=== PATIENT | female | born 1980 | race Hispanic/Latino ===

== ENCOUNTER 2017-07-26 15:45 | Observation (INO) | payer OTHER ==
--- NOTE | 2017-07-26 16:39 | ED PDOC ---
HPI: CCC, URI, Sore Throat Time Seen by Provider: 07/26/17 16:30 Chief Complaint (Nursing): ENT Problem Chief Complaint (Provider): Throat Pain History Per: Patient History/Exam Limitations: no limitations Onset/Duration Of Symptoms: Days (7 days) Current Symptoms Are (Timing): Still Present Location Of Pain: Throat Additional Complaint(s): 37 y/o female with a history of chronic strep infections presents to the ED complaining of throat pain, onset of 7 days ago. Pt reports a history of chronic tonsillitis. Pt contacted her ENT who called in Augmentin for her. Pt reports no relief Pt is scheduled for a tonsillectomy in Sep. Past Medical History Reviewed: Historical Data, Nursing Documentation, Vital Signs Vital Signs: Last Vital Signs Temp 97.9 F 07/26/17 15:54 Pulse 95 H 07/26/17 15:54 Resp 16 07/26/17 15:54 BP 145/92 H 07/26/17 15:54 Pulse Ox 100 07/26/17 17:02 - Medical History Other PMH: chronic streptococcus infections - Surgical History Surgical History: - Family History Family History: States: Unknown Family Hx - Living Arrangements Living Arrangements: With Family - Social History Current smoker - smoking cessation education provided: No Ex-Smoker (has not smoked in the last 12 months): No Alcohol: None - Home Medications Home Medications: Ambulatory Orders Medication Instructions Recorded Nifedipine [Adalat cc] 90 mg PO DAILY 04/28/15 - Allergies Allergies/Adverse Reactions: Allergies Allergy/AdvReac Type Severity Reaction Status Date / Time No Known Allergies Allergy Verified 07/26/17 15:53 Review of Systems ROS Statement: Except As Marked, All Systems Reviewed And Found Negative Constitutional: Negative for: Fever, Chills ENT: Positive for: Nose Congestion, Throat Pain (worse on left), Throat Swelling Respiratory: Positive for: Cough Physical Exam - Reviewed Nursing Documentation Reviewed: Yes Vital Signs Reviewed: Yes - Physical Exam Appears: Positive for: Non-toxic, No Acute Distress Head Exam: Positive for: ATRAUMATIC Skin: Positive for: Normal Color, Warm Eye Exam: Positive for: Normal appearance ENT: Positive for: Pharyngeal Erythema, Tonsillar Swelling (L palatal asymmetry) . Negative for: Tonsillar Exudate, Other (no uvula deviation) Cardiovascular/Chest: Positive for: Regular Rate, Rhythm. Negative for: Murmur Respiratory: Positive for: Normal Breath Sounds. Negative for: Respiratory Distress Neurologic/Psych: Positive for: Alert, Oriented. Negative for: Motor/Sensory Deficits - Laboratory Results Result Diagrams: 07/26/17 16:58 07/26/17 16:58 - ECG O2 Sat by Pulse Oximetry: 100 (RA) Pulse Ox Interpretation: Normal Medical Decision Making Medical Decision Making: Time: --16:30 Impression: --rule out peritonsillar abscess Plan: --CT neck soft tissue w/ contrast --Labs --[place] virus ab pnl --Cleocin 600ng IVPB --Dexamethasone --Throat Culture --Infectious Mononucleosis --Rapid Strep Group Reassess WBC 11.1 Kay (+) Pt made aware of all results -- IMPRESSION: 1. There are dependent fluid levels in the bilateral maxillary sinuses, cannot exclude acute sinusitis. 2. There is asymmetric prominence of the left palatine tonsil consistent with left tonsillitis. There are 2 foci of non-enhancement in the left palatine tonsil with surrounding tonsillar enhancement with the larger of these 2 regions measuring 1.9 x 1.1 x 1.6 cm and the smaller more inferiorly positioned lesion 1.2 x 0.5 x 0.9 cm, possible left tonsillar abscesses. 3. There is bilateral level II cervical lymphadenopathy, greater on the left than on the right ENT, Dr. Fuller, contacted and case discussed. Advised admission at this time, he will drain abscess in am. Orders left with RN Medicine on-call, Dr. Santiago, contacted and case discussed. Arrangements made for admission Pt doing well on re-eval, declined any further analgesics. Scribe Attestation: Documented by Salomon Melendrez acting as a scribe for MICHAEL Leonardo. Disposition - Clinical Impression Clinical Impression: Peritonsillar abscess - Patient ED Disposition Is Patient to be Admitted: Yes - Disposition Disposition Time: 20:02 Condition: STABLE Forms: [facility] ([place]ian) - Pt Status Changed To: Hospital Disposition Of: Observation
[2017-07-26] MEDS ORDERED: Dexamethasone 10 MG in Dextrose 5% In Water 50 ML IV ONE (16:46)
[2017-07-26] MEDS ORDERED: Iohexol 300 100 ML IJ ONE (16:48)
[2017-07-26] MEDS ORDERED: Sodium Chloride 0.9% 50 ML IV ONE (16:49)
[2017-07-26] MEDS ORDERED: Clindamycin 600mg/50ml NS 600 MG/50 ML BAG IVPB SCH (17:05)
[2017-07-26 17:21] LABS: BASO # 0.1 K/uL (0.0-0.2); BASO % 0.8 % (0.0-2.0); EOS # 0.1 K/uL (0.0-0.7); EOS % 0.9 % (0.0-4.0); HEMATOCRIT 38.3 % (34.0-47.0); LYMPH # 2.2 K/uL (1.0-4.3); LYMPH % 19.6 % (20.0-40.0); MEAN CELL VOLUME 93.7 fl (81.0-99.0); MEAN CORPUSCULAR HEMOGLOBIN 30.7 pg (27.0-31.0); MEAN CORPUSCULAR HGB CONC 32.8 g/dL (33.0-37.0); MONO # 0.8 K/uL (0.0-0.8); MONO % 7.4 % (0.0-10.0); NEUT # 7.9 K/uL (1.8-7.0); NEUT % 71.3 % (50.0-75.0); NRBC % 0.1 % (0.0-0.0); RED CELL DISTRIBUTION WIDTH 13.2 % (11.5-14.5); WHITE BLOOD COUNT 11.1 K/uL (4.8-10.8)
[2017-07-26 17:30] LABS: ALB/GLOB RATIO 1.2 (1.0-2.1); ALKALINE PHOSPHATASE 56 U/L (38-126); ALT/SGPT 28 U/L (9-52); AST/SGOT 32 U/L (14-36); BILIRUBIN,TOTAL 0.5 mg/dl (0.2-1.3); BLOOD UREA NITROGEN 15 mg/dl (7-17); CALCIUM 9.1 mg/dL (8.4-10.2); CARBON DIOXIDE 24 mmol/L (22-30); CHLORIDE 103 mmol/L (98-107); GFR AFRICAN-AMERICAN > 60; GLUCOSE,RANDOM 86 mg/dL (65-105); POTASSIUM 4.7 MMOL/L (3.6-5.0); SODIUM 140 mmol/l (132-148); TOTAL PROTEIN 8.1 G/DL (6.3-8.2)
[2017-07-26] MEDS ORDERED: Dexamethasone 10 MG in Dextrose 5% In Water 50 ML IV SCH (23:00)
[2017-07-26] MEDS: Clindamycin 600mg/50ml NS 600 MG/50 ML BAG IVPB SCH (23:32)
[2017-07-27] MEDS: Clindamycin 600mg/50ml NS 600 MG/50 ML BAG IVPB SCH ×2 (05:15→11:02)
[2017-07-27] MEDS ORDERED: Lidocaine/Epi 1% 1:100000 20 ML IJ ONE (06:00)
[2017-07-27 07:20] VITALS: BP 105/66; PULSE 59; RESP 18; TEMP 98; O2SAT 98
[2017-07-27 07:50] LABS: HEMATOCRIT 36.1 % (34.0-47.0); MEAN CELL VOLUME 92.1 fl (81.0-99.0); MEAN CORPUSCULAR HGB CONC 33.6 g/dL (33.0-37.0); RED CELL DISTRIBUTION WIDTH 13.3 % (11.5-14.5); WHITE BLOOD COUNT 9.4 K/uL (4.8-10.8)
[2017-07-27 07:55] LABS: ALKALINE PHOSPHATASE 49 U/L (38-126); ALT/SGPT 28 U/L (9-52); AST/SGOT 31 U/L (14-36); BILIRUBIN,TOTAL 0.4 mg/dl (0.2-1.3); BLOOD UREA NITROGEN 12 mg/dl (7-17); CALCIUM 9.1 mg/dL (8.4-10.2); CARBON DIOXIDE 24 mmol/L (22-30); CHLORIDE 103 mmol/L (98-107); GFR AFRICAN-AMERICAN > 60; GLUCOSE,RANDOM 104 mg/dL (65-105); MAGNESIUM 2.1 MG/DL (1.6-2.3); POTASSIUM 4.3 MMOL/L (3.6-5.0); SODIUM 139 mmol/l (132-148); TOTAL PROTEIN 7.9 G/DL (6.3-8.2)
[2017-07-27 07:58] LABS: PARTIAL THROMBOPLASTIN TIME 30.9 Seconds (25.6-37.1)
[2017-07-27] MEDS ORDERED: Lidocaine 2% w Epi 1:100,000 Inj IJ ONE (10:54)
--- NOTE | 2017-07-27 12:50 | CP.PCM.HP ---
Past Patient History - Past Medical History & Family History Past Medical History?: Yes - Past Social History Smoking Status: Never Smoked - CARDIAC Hx Cardiac Disorders: Yes Hx Hypertension: Yes Other/Comment: PREECLAMPSIA 2014 - PULMONARY Hx Respiratory Disorders: No - NEUROLOGICAL Hx Neurological Disorder: No - HEENT Hx HEENT Problems: Yes Other/Comment: Chronic Tonsillitis - RENAL Hx Chronic Kidney Disease: No - ENDOCRINE/METABOLIC Hx Endocrine Disorders: No - HEMATOLOGICAL/ONCOLOGICAL Hx Blood Disorders: No Hx AIDS: No Hx Human Immunodeficiency Virus (HIV): No - INTEGUMENTARY Hx Dermatological Problems: No - MUSCULOSKELETAL/RHEUMATOLOGICAL Hx Musculoskeletal Disorders: No Hx Falls: No - GASTROINTESTINAL Hx Gastrointestinal Disorders: No - GENITOURINARY/GYNECOLOGICAL Hx Genitourinary Disorders: No - PSYCHIATRIC Hx Psychophysiologic Disorder: No Hx Substance Use: No - SURGICAL HISTORY Hx Surgeries: Yes Hx Section: Yes (x2 2014 and 2015) - ANESTHESIA Hx Anesthesia: Yes Hx Anesthesia Reactions: Yes (2nd CS= epidural- weakness LE) Hx Malignant Hyperthermia: No Has any member of the family had a problem w/ anesthesia?: No Meds Allergies/Adverse Reactions: Allergies Allergy/AdvReac Type Severity Reaction Status Date / Time No Known Allergies Allergy Verified 07/26/17 15:53 Results - Vital Signs Recent Vital Signs: Last Vital Signs Temp 98.0 F 07/27/17 07:20 Pulse 59 L 07/27/17 07:20 Resp 18 07/27/17 07:20 BP 105/66 07/27/17 07:20 Pulse Ox 98 07/27/17 07:20 - Labs Result Diagrams: 07/27/17 05:30 07/27/17 05:30 Labs: Laboratory Results - last 24 hr 07/26/17 07/26/17 07/26/17 16:58 16:58 16:58 WBC 11.1 H RBC 4.09 Hgb 12.6 Hct 38.3 MCV 93.7 D MCH 30.7 MCHC 32.8 L RDW 13.2 Plt Count 331 MPV 8.0 Neut % (Auto) 71.3 Lymph % (Auto) 19.6 L [place] % (Auto) 7.4 Eos % (Auto) 0.9 Baso % (Auto) 0.8 Neut # 7.9 H Lymph # 2.2 [place] # 0.8 Eos # 0.1 Baso # 0.1 PT INR APTT Sodium 140 Potassium 4.7 Chloride 103 Carbon Dioxide 24 Anion Gap 18 BUN 15 Creatinine 0.6 L Est GFR ( Amer) > 60 Est GFR (Non-Af Amer) > 60 Random Glucose 86 Calcium 9.1 Magnesium Total Bilirubin 0.5 AST 32 ALT 28 Alkaline Phosphatase 56 Total Protein 8.1 Albumin 4.4 Globulin 3.8 Albumin/Globulin Ratio 1.2 Infectious [place] Assay Positive H 07/27/17 07/27/17 07/27/17 05:30 05:30 05:30 WBC 9.4 RBC 3.93 Hgb 12.2 Hct 36.1 MCV 92.1 MCH 31.0 MCHC 33.6 RDW 13.3 Plt Count 312 MPV Neut % (Auto) Lymph % (Auto) [place] % (Auto) Eos % (Auto) Baso % (Auto) Neut # Lymph # [place] # Eos # Baso # PT 15.0 H INR 1.3 H APTT 30.9 Sodium 139 Potassium 4.3 Chloride 103 Carbon Dioxide 24 Anion Gap 16 BUN 12 Creatinine 0.5 L Est GFR ( Amer) > 60 Est GFR (Non-Af Amer) > 60 Random Glucose 104 Calcium 9.1 Magnesium 2.1 Total Bilirubin 0.4 AST 31 ALT 28 Alkaline Phosphatase 49 Total Protein 7.9 Albumin 4.0 Globulin 3.9 Albumin/Globulin Ratio 1.0 Infectious [place] Assay
--- NOTE | 2017-07-27 16:26 | CT ---
PROCEDURE: CT NECK WITH CONTRAST HISTORY: r/o Left BRANCH EXAMINER COMPARISON: None TECHNIQUE: CT of the neck with intravenous contrast. Coronal and sagittal reformats generated. Intravenous contrast dose: 95 cc Omnipaque 300. Radiation dose: DLP 486.63 mGy-cm This CT exam was performed using one or more of the following dose reduction techniques: Automated exposure control, adjustment of the mA and/or kV according to patient size, and/or use of iterative reconstruction technique. FINDINGS: NASOPHARYNX: Unremarkable. SUPRAHYOID NECK: Inflammatory changes affecting the left palatini tonsil. Evidence of 2 peritonsillar abscess identified the largest measures 9 x 15 mm. The smaller 7 x 13 mm. Regional lymphadenopathy likely inflammatory. No appreciable narrowing of the airway. Pooling of fluid in the left vallecular and piriform sinus. INFRAHYOID NECK: Unremarkable larynx, hypopharynx, and supraglottic space. Vocal cords intact. MASS: None. GLANDS: Parotid and submandibular glands unremarkable. Normal size thyroid gland, without nodule. LYMPH NODES: Normal. No lymphadenopathy. CERVICAL SPINE: No fracture or focal lesion. VASCULAR STRUCTURES: Unremarkable. OTHER FINDINGS: Bilateral maxillary sinusitis, acute with symmetrical air-fluid levels. IMPRESSION: Inflammatory changes left palate seen tonsil with associated peritonsillar abscess ease (2). Reactive lymphadenopathy identified. Incidental finding(s): Bilateral maxillary sinus air-fluid levels consistent with acute sinusitis Concordant results (preliminary interpretation) provided by [employer]. Procedure Completed: 18:40. Preliminary ([employer]) Report: Dictated and Authenticated: 19:16. Final Interpretation: 16:24. July 27, 2017.
--- NOTE | 2017-07-27 18:52 | OP ---
PROCEDURE DATE: 07/27/2017 PREOPERATIVE DIAGNOSIS: Left peritonsillar abscess. POSTOPERATIVE DIAGNOSIS: Left peritonsillar abscess. PROCEDURE: Incision and drainage of left peritonsillar abscess. SIGNIFICANT FINDINGS: Left peritonsillar abscess. DESCRIPTION OF PROCEDURE: The patient was placed in seated position. The left peritonsillar area was injected with lidocaine with epinephrine. A #11 blade was used to make an incision in the left peritonsillar area. Blunt dissections were done. Pus was noted to be coming out. Loculations were broken using a clamp. Bleeding was controlled with time. The patient tolerated the procedure well. Too Fuller MD
[2017-07-27] MEDS ORDERED: Amoxicillin-Clav 875-125 mg Tab PO SCH (21:00)
--- NOTE | 2017-07-28 00:04 | CP.PCM.DIS ---
Provider - Provider Date of Admission: 07/26/17 20:16 Attending physician: Carmel Santiago MD Time Spent in preparation of Discharge (in minutes): 25 Hospital Course - Lab Results Lab Results: Most Recent Lab Values WBC 9.4 K/uL (4.8-10.8) 07/27/17 05:30 RBC 3.93 Mil/uL (3.80-5.20) 07/27/17 05:30 Hgb 12.2 g/dL (12.0-16.0) 07/27/17 05:30 Hct 36.1 % (34.0-47.0) 07/27/17 05:30 MCV 92.1 fl (81.0-99.0) 07/27/17 05:30 MCH 31.0 pg (27.0-31.0) 07/27/17 05:30 MCHC 33.6 g/dL (33.0-37.0) 07/27/17 05:30 RDW 13.3 % (11.5-14.5) 07/27/17 05:30 Plt Count 312 K/uL (130-400) 07/27/17 05:30 MPV 8.0 fl (7.2-11.7) 07/26/17 16:58 Neut % (Auto) 71.3 % (50.0-75.0) 07/26/17 16:58 Lymph % (Auto) 19.6 % (20.0-40.0) L 07/26/17 16:58 [place] % (Auto) 7.4 % (0.0-10.0) 07/26/17 16:58 Eos % (Auto) 0.9 % (0.0-4.0) 07/26/17 16:58 Baso % (Auto) 0.8 % (0.0-2.0) 07/26/17 16:58 Neut # 7.9 K/uL (1.8-7.0) H 07/26/17 16:58 Lymph # 2.2 K/uL (1.0-4.3) 07/26/17 16:58 [place] # 0.8 K/uL (0.0-0.8) 07/26/17 16:58 Eos # 0.1 K/uL (0.0-0.7) 07/26/17 16:58 Baso # 0.1 K/uL (0.0-0.2) 07/26/17 16:58 PT 15.0 Seconds (9.8-13.1) H 07/27/17 05:30 INR 1.3 (0.9-1.2) H 07/27/17 05:30 APTT 30.9 Seconds (25.6-37.1) 07/27/17 05:30 Sodium 139 mmol/l (132-148) 07/27/17 05:30 Potassium 4.3 MMOL/L (3.6-5.0) 07/27/17 05:30 Chloride 103 mmol/L (98-107) 07/27/17 05:30 Carbon Dioxide 24 mmol/L (22-30) 07/27/17 05:30 Anion Gap 16 (10-20) 07/27/17 05:30 BUN 12 mg/dl (7-17) 07/27/17 05:30 Creatinine 0.5 mg/dl (0.7-1.2) L 07/27/17 05:30 Est GFR ( Amer) > 60 07/27/17 05:30 Est GFR (Non-Af Amer) > 60 07/27/17 05:30 Random Glucose 104 mg/dL (65-105) 07/27/17 05:30 Calcium 9.1 mg/dL (8.4-10.2) 07/27/17 05:30 Magnesium 2.1 MG/DL (1.6-2.3) 07/27/17 05:30 Total Bilirubin 0.4 mg/dl (0.2-1.3) 07/27/17 05:30 AST 31 U/L (14-36) 07/27/17 05:30 ALT 28 U/L (9-52) 07/27/17 05:30 Alkaline Phosphatase 49 U/L (38-126) 07/27/17 05:30 Total Protein 7.9 G/DL (6.3-8.2) 07/27/17 05:30 Albumin 4.0 g/dL (3.5-5.0) 07/27/17 05:30 Globulin 3.9 gm/dL (2.2-3.9) 07/27/17 05:30 Albumin/Globulin Ratio 1.0 (1.0-2.1) 07/27/17 05:30 Infectious [place] Assay Positive (NEGATIVE) H 07/26/17 16:58 Discharge Exam - Head Exam Head Exam: ATRAUMATIC Discharge Plan - Follow Up Plan Condition: STABLE Disposition: HOME/ ROUTINE Instructions: Amoxicillin/Clavulanate Potassium (By mouth), Peritonsillar Abscess (DC), Peritonsillar Abscess (GEN) Additional Instructions: Clear liquids Referrals: Too Fuller MD [Staff Provider] - Carmel Santiago MD [Staff Provider] -
== END 2017-07-27 15:08 | disposition home or self-care (01) ==
LOC: H.ER 15:45 → H.ERHOLD 20:16 → H.MEDSURG1 21:45
PROVIDERS: ADMIT Internal Medicine; ATTEND Internal Medicine
DX: J36 Peritonsillar abscess (principal)
CPT/HCPCS: 36415; 42700; 70491; 80053; 81025; 83735; 85025; 85027; 85610; 85730; 86308; 86664; 86665; 87070; 96365; 96374; 99283; G0378; J1100; Q9967